=== PATIENT | female | born 1945 | race Caucasian/White ===

== ENCOUNTER 2023-05-04 18:19 | Inpatient (IN) | payer MEDICARE, OTHER ==
[~2023-05-04] VITALS: Ht 170.2 cm; Wt 78.9 kg
[~2023-05-04 18:19] MED LIST: APIX5TAB3 PO; CARV6.253 PO; FLEC50TA28 PO; METF-900 PO; MULT-384 PO; ROSU5TAB PO; VERA240T PO
[2023-05-04] MEDS ORDERED: morphine 4 MG/ML inj SYRINge IV ONE ×2 (18:25→19:40)
[2023-05-04] MEDS ORDERED: ondansetron/PF 4mg/2ml inj IV ONE (18:25)
[2023-05-04 18:55] LABS: HEMOGLOBIN 12.4 g/dl (12.0-16.0); PLATELET COUNT 177 X10'3 (140-440)
[2023-05-04 18:57] LABS: BASOPHILS % (AUTO) 0.4 % (0-1); EOSINOPHILS # (AUTO) 0.1 X10'3 (0-0.9); EOSINOPHILS % (AUTO) 0.9 % (0-6); HEMATOCRIT 36.1 % (35.0-45.0); LYMPHOCYTES # (AUTO) 1.8 X10'3 (1.1-4.8); LYMPHOCYTES % (AUTO) 17.6 % (21-51); MEAN CORPUSCULAR HEMOGLOBIN 33.5 PG (27.0-31.0); MEAN CORPUSCULAR HGB CONC 34.2 g/dL (33.0-36.5); MEAN CORPUSCULAR VOLUME 97.8 FL (78-98); MEAN PLATELET VOLUME 9.2 FL (7.4-10.4); MONOCYTES # (AUTO) 0.6 X10'3 (0-0.9); MONOCYTES % (AUTO) 5.4 % (2-12); NEUTROPHILS # (AUTO) 7.7 X10'3 (1.8-7.7); NEUTROPHILS % (AUTO) 75.7 % (42-75); RED CELL DISTRIBUTION WIDTH 12.6 % (11.5-14.5); WHITE BLOOD COUNT 10.2 X10'3 (4.5-11.0)
[2023-05-04 19:05] LABS: ALANINE AMINOTRANSFERASE 17 U/L (12-78); ALBUMIN 3.8 G/DL (3.4-5.0); ALBUMIN/GLOBULIN RATIO 1.4 (1.1-1.5); ALKALINE PHOSPHATASE 66 IU/L (46-116); ANION GAP 8 (8-16); ASPARTATE AMINO TRANSFERASE 15 U/L (10-37); BILIRUBIN,TOTAL 0.4 MG/DL (0.1-1.0); BLOOD UREA NITROGEN 12 MG/DL (7-18); BUN/CREATININE RATIO 16.9 (10.0-20.0); CHLORIDE 100 MMOL/L (99-107); CREATININE 0.71 MG/DL (0.40-0.90); GLUCOSE 154 MG/DL (70-104); POTASSIUM 3.8 MMOL/L (3.5-5.1); SODIUM 134 MMOL/L (135-145); TOTAL PROTEIN 6.5 G/DL (6.4-8.2); eCRCL 64 ML/MIN; eGFR 80 ML/MIN
[2023-05-04 19:12] LABS: PROTHROMBIN TIME 10.4 SECONDS (9.0-12.0)
[2023-05-04] MEDS ORDERED: PRIM50TA27 PO (19:23)
[2023-05-04 19:34] LABS: BILIRUBIN,URINE NEGATIVE (Neg); COLOR,URINE YELLOW (Yellow); GLUCOSE, URINE NEGATIVE (Neg); KETONES,URINE NEGATIVE (Neg); LEUKOCYTE ESTERASE ,URINE NEGATIVE (Neg); NITRITES, URINE POSITIVE (Neg); OCCULT BLOOD,URINE NEGATIVE (Neg); PROTEIN,URINE NEGATIVE (Neg); UROBILINOGEN,URINE 0.2 E.U/dL (0.2-1.0)
[2023-05-04] MEDS ORDERED: LidoCAINE 2% Topical Jelly 11mL syringe TOP ONE (19:40)
[2023-05-04 19:45] LABS: UA COLLECTION TYPE FOLEY CATH
[2023-05-04 19:51] LABS: BACTERIA,URINE 4+ /HPF (Neg); RBC,URINE 0-2 /HPF (0-2)
[2023-05-04 19:52] LABS: CLARITY,URINE SLIGHTLY CLOUDY (Clear); SQUAMOUS EPITHELIAL CELL,UR FEW /LPF (FEW)
[2023-05-04] MEDS ORDERED: potassium Cl 20 mEq SR tablet PO PRN ×2 (19:55)
[2023-05-04] MEDS ORDERED: magnesium Cl slow-release 64mg tablet PO PRN (19:55)
[2023-05-04] MEDS ORDERED: potassium Cl 40MEQ/1/2NS 520ml 520 ML IV PRN (19:55)
[2023-05-04] MEDS ORDERED: mag hydrox/Alum hydrox/simeth 30ml oral suspension PO PRN (19:55)
[2023-05-04] MEDS ORDERED: magnesium 2GM in 50ml NS 50 ML IV PRN (19:55)
[2023-05-04] MEDS ORDERED: ondansetron/PF 4mg/2ml inj IV PRN (19:55)
[2023-05-04] MEDS ORDERED: magnesium 4gm in 100ml NS 100 ML IV PRN (19:55)
[2023-05-04] MEDS ORDERED: dextrose 50%-water 50ml dispensing syringe IV PRN ×2 (20:00)
[2023-05-04] MEDS ORDERED: glucagon, human recombinant 1mg kit SUBCUT PRN (20:00)
[2023-05-04] MEDS ORDERED: DEXTROSE 15 GM of carb/4 tabs (each vial/BOTTLE has 4 tablets) PO PRN ×2 (20:00)
[2023-05-04] MEDS ORDERED: MESSAGE TO PHARMACY PO ONE (20:00)
[2023-05-04] MEDS: K and/or MAG REPLACEMENT MC SCH (20:00)
[2023-05-04] MEDS: docusate sod 100mg capsule PO SCH (20:15)
[2023-05-04] MEDS: flecainide 50mg tablet PO SCH (20:15)
[2023-05-04] MEDS: normal saline 1000ml 1,000 ML IV SCH (20:16)
[2023-05-04] MEDS: carvedilol 6.25mg tablet PO SCH (20:16)
--- NOTE | 2023-05-04 20:28 | NUR ---
DINNER PROVIDED FOR PATIENT. DENIES FURTHER NEEDS AT THIS TIME. AT BEDSIDE. PATIENT VERBALIZES UNDERSTANDING OF NPO AT MIDNIGHT. CALL LIGHT WITHIN REACH.
[2023-05-04] MEDS: HYDROcodone/acetaminophen 10/325mg tab PO PRN (21:46)
--- NOTE | 2023-05-04 22:34 | NUR ---
PATIENT RESTING IN BED WITH EYES CLOSED, RESPIRATIONS EVEN AND UNLABORED, NO ACUTE DISTRESS NOTED AT THIS TIME. CALL LIGHT WITHIN REACH.
[2023-05-04] MEDS: morphine 2 MG/ML inj. syringe IV PRN (23:12)
--- NOTE | 2023-05-05 01:39 | NUR ---
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 PROVIDED PER ORDER. DENIES FURTHER NEEDS AT THIS TIME. RESPIRATIONS EVEN AND UNLABORED. NO ACUTE DISTRESS NOTED, CALL LIGHT WITHIN REACH.
[2023-05-05] MEDS: morphine 2 MG/ML inj. syringe IV PRN ×5 (01:42→15:20)
--- NOTE | 2023-05-05 02:43 | NUR ---
0300 LABS DRAWN AND SENT TO LAB. PATIENT DENIES NEEDS AT THIS TIME, CALL LIGHT WITHIN REACH. RESPIRATIONS EVEN AND UNLABORED.
[2023-05-05 02:56] LABS: BASOPHILS % (AUTO) 0.4 % (0-1); EOSINOPHILS % (AUTO) 0.6 % (0-6); HEMATOCRIT 33.7 % (35.0-45.0); HEMOGLOBIN 11.7 g/dl (12.0-16.0); LYMPHOCYTES # (AUTO) 2.3 X10'3 (1.1-4.8); LYMPHOCYTES % (AUTO) 30.7 % (21-51); MEAN CORPUSCULAR HEMOGLOBIN 33.7 PG (27.0-31.0); MEAN CORPUSCULAR HGB CONC 34.6 g/dL (33.0-36.5); MEAN CORPUSCULAR VOLUME 97.3 FL (78-98); MEAN PLATELET VOLUME 8.7 FL (7.4-10.4); MONOCYTES # (AUTO) 0.7 X10'3 (0-0.9); MONOCYTES % (AUTO) 9.1 % (2-12); NEUTROPHILS # (AUTO) 4.4 X10'3 (1.8-7.7); NEUTROPHILS % (AUTO) 59.2 % (42-75); PLATELET COUNT 158 X10'3 (140-440); RED BLOOD COUNT 3.47 X10'6 (4.20-5.60); RED CELL DISTRIBUTION WIDTH 12.5 % (11.5-14.5); WHITE BLOOD COUNT 7.5 X10'3 (4.5-11.0)
[2023-05-05 03:04] LABS: ALANINE AMINOTRANSFERASE 16 U/L (12-78); ALBUMIN 3.4 G/DL (3.4-5.0); ALBUMIN/GLOBULIN RATIO 1.3 (1.1-1.5); ALKALINE PHOSPHATASE 61 IU/L (46-116); ANION GAP 6 (8-16); ASPARTATE AMINO TRANSFERASE 17 U/L (10-37); BILIRUBIN,TOTAL 0.6 MG/DL (0.1-1.0); BLOOD UREA NITROGEN 10 MG/DL (7-18); BUN/CREATININE RATIO 14.1 (10.0-20.0); CALCIUM 8.7 MG/DL (8.5-10.1); CHLORIDE 102 MMOL/L (99-107); CREATININE 0.71 MG/DL (0.40-0.90); GLUCOSE 147 MG/DL (70-104); MAGNESIUM 1.8 MG/DL (1.5-2.4); POTASSIUM 4.4 MMOL/L (3.5-5.1); SODIUM 135 MMOL/L (135-145); TOTAL CARBON DIOXIDE 27.5 MMOL/L (24-32); TOTAL PROTEIN 6.1 G/DL (6.4-8.2); eCRCL 64 ML/MIN; eGFR 80 ML/MIN
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
--- NOTE | 2023-05-05 05:40 | NUR ---
PATIENT RESTING WITH EYES CLOSED, NO FACIAL GRIMACING NOTED. RESPIRATIONS EVEN AND UNLABORED. CALL LIGHT WITHIN REACH.
--- NOTE | 2023-05-05 07:27 | NUR ---
recd report from [facility]
[2023-05-05 07:50] VITALS: BP 134/66; PULSE 69; RESP 24; TEMP 98; O2SAT 99
[2023-05-05] MEDS: ROSUVASTATIN CALCIUM 5 MG TABLET PO SCH (08:00)
[2023-05-05] MEDS: K and/or MAG REPLACEMENT MC SCH ×2 (08:00→20:00)
[2023-05-05] MEDS: flecainide 50mg tablet PO SCH ×2 (08:00→21:18)
[2023-05-05] MEDS: carvedilol 6.25mg tablet PO SCH ×2 (08:00→21:20)
[2023-05-05] MEDS: docusate sod 100mg capsule PO SCH ×2 (08:00→21:18)
[2023-05-05] MEDS: normal saline 1000ml 1,000 ML IV SCH ×2 (08:25→22:58)
[2023-05-05 11:43] VITALS: BP 144/64; PULSE 80; RESP 20; TEMP 99.8; O2SAT 98
[2023-05-05] MEDS ORDERED: PRIM50TA5 PO (13:10)
[2023-05-05] MEDS ORDERED: ringers solution, lacted 1,000 ML IV ONE (17:15)
[2023-05-05 18:00] VITALS: BP 145/59; PULSE 71; RESP 15; TEMP 98.2; O2SAT 94
[2023-05-05] MEDS: morphine/NS 1 mg/ml 50ml CADD 50 ML IV SCH ×3 (18:18→23:00)
[2023-05-05] MEDS: Melatonin 3mg tablet PO SCH (21:18)
[2023-05-05 22:00] VITALS: BP 136/68; PULSE 79; RESP 15; TEMP 96.8; O2SAT 95
--- NOTE | 2023-05-05 23:10 | NUR ---
Patient in room ORTHO 4020. I have received report from TOBY Aguirre and had the opportunity to ask questions and assume patient care.
--- NOTE | 2023-05-05 23:49 | NUR ---
Patient in room ORTHO 4020. I have received report from Flores and had the opportunity to ask questions and assume patient care.
--- NOTE | 2023-05-05 23:53 | NUR ---
Problems reprioritized. Patient report given, questions answered & plan of care reviewed with Stacey .
[2023-05-06] VITALS (24 sets, daily range): BP systolic 96–140; BP diastolic 47–68; PULSE 60–90; RESP 10–20; TEMP 96.2–99; O2SAT 93–100
[2023-05-06] MEDS: morphine/NS 1 mg/ml 50ml CADD 50 ML IV SCH ×5 (01:00→09:00)
[2023-05-06 05:59] LABS: BASOPHILS % (AUTO) 0.4 % (0-1); EOSINOPHILS % (AUTO) 0.7 % (0-6); HEMATOCRIT 34.6 % (35.0-45.0); HEMOGLOBIN 11.8 g/dl (12.0-16.0); LYMPHOCYTES # (AUTO) 1.9 X10'3 (1.1-4.8); LYMPHOCYTES % (AUTO) 26.4 % (21-51); MEAN CORPUSCULAR VOLUME 97.3 FL (78-98); MONOCYTES # (AUTO) 0.8 X10'3 (0-0.9); NEUTROPHILS # (AUTO) 4.5 X10'3 (1.8-7.7); NEUTROPHILS % (AUTO) 61.5 % (42-75); PLATELET COUNT 148 X10'3 (140-440); RED BLOOD COUNT 3.56 X10'6 (4.20-5.60); RED CELL DISTRIBUTION WIDTH 12.5 % (11.5-14.5); WHITE BLOOD COUNT 7.3 X10'3 (4.5-11.0)
[2023-05-06] MEDS ORDERED: famotidine 20mg tablet PO ONE (06:00)
[2023-05-06 06:16] LABS: ALANINE AMINOTRANSFERASE 10 U/L (12-78); ALBUMIN/GLOBULIN RATIO 1.1 (1.1-1.5); ALKALINE PHOSPHATASE 54 IU/L (46-116); ANION GAP 6 (8-16); ASPARTATE AMINO TRANSFERASE 14 U/L (10-37); BILIRUBIN,TOTAL 0.8 MG/DL (0.1-1.0); BLOOD UREA NITROGEN 7 MG/DL (7-18); BUN/CREATININE RATIO 9.9 (10.0-20.0); CALCIUM 8.4 MG/DL (8.5-10.1); CHLORIDE 99 MMOL/L (99-107); CREATININE 0.71 MG/DL (0.40-0.90); GLUCOSE 154 MG/DL (70-104); MAGNESIUM 1.7 MG/DL (1.5-2.4); POTASSIUM 3.7 MMOL/L (3.5-5.1); SODIUM 132 MMOL/L (135-145); TOTAL CARBON DIOXIDE 27.2 MMOL/L (24-32); TOTAL PROTEIN 5.7 G/DL (6.4-8.2); eCRCL 64 ML/MIN; eGFR 80 ML/MIN
[2023-05-06 06:28] LABS: HEMOGLOBIN A1C 6.7 % (4.5-6.2)
[2023-05-06] MEDS ORDERED: vancomycin 1,000mg inj ONE (06:41)
--- NOTE | 2023-05-06 06:48 | NUR ---
Patient in room ORTHO 4020. I have received report from Stacey and had the opportunity to ask questions and assume patient care.
--- NOTE | 2023-05-06 06:55 | NUR ---
Problems reprioritized. Patient report given, questions answered & plan of care reviewed with HONEY Newman.
[2023-05-06] MEDS ORDERED: midazolam 1 mg/ML 2ml injection ONE (07:18)
[2023-05-06] MEDS ORDERED: labetalol 20mg/4ml (5mg/ml) syringe IV PRN (07:30)
[2023-05-06] MEDS ORDERED: ondansetron/PF 4mg/2ml inj IV PRN (07:30)
[2023-05-06] MEDS ORDERED: morphine 4 MG/ML inj SYRINge IV PRN (07:30)
[2023-05-06] MEDS ORDERED: hydrALAZINE 20mg/ml inj. IV PRN (07:30)
[2023-05-06] MEDS: K and/or MAG REPLACEMENT MC SCH ×2 (07:30→20:00)
[2023-05-06] MEDS ORDERED: morphine 2 MG/ML inj. syringe IV PRN (07:30)
[2023-05-06] MEDS ORDERED: HYDROmorphone/PF 0.2 MG/ML SYRINGE IV PRN ×2 (07:30)
[2023-05-06] MEDS ORDERED: acetaminophen 1,000mg/100ml IV 100 ML IV PRN (07:30)
[2023-05-06] MEDS: carvedilol 6.25mg tablet PO SCH ×2 (07:30→20:20)
[2023-05-06] MEDS ORDERED: ringers solution, lacted 1,000 ML IV SCH (07:30)
[2023-05-06] MEDS: ROSUVASTATIN CALCIUM 5 MG TABLET PO SCH (07:30)
[2023-05-06] MEDS ORDERED: meperidine/PF 25mg/ml syringe IV PRN (07:30)
[2023-05-06] MEDS: flecainide 50mg tablet PO SCH ×2 (07:30→20:06)
[2023-05-06] MEDS: docusate sod 100mg capsule PO SCH ×2 (07:30→20:06)
[2023-05-06] MEDS ORDERED: proCHLORperazine 10 MG/2 ml inj IV PRN (07:30)
[2023-05-06] MEDS ORDERED: ketorolac tromethamine 15mg/ml inj. IV ONE (07:30)
[2023-05-06] MEDS ORDERED: cloNIDine hcl/PF 100mcg/ml inj ONE (07:31)
[2023-05-06] MEDS ORDERED: sevoflurane 250ml liquid IH ONE (07:37)
[2023-05-06] MEDS ORDERED: fentaNYL /PF 50mcg/ml 5ml ampule ONE (07:47)
[2023-05-06] MEDS ORDERED: 0.9 % SODIUM CHLORIDE 10 ML VIAL ONE ×3 (08:20)
[2023-05-06] MEDS ORDERED: dexamethasone sod phosphate 4mg/ml inj. ONE ×2 (08:20→08:36)
[2023-05-06] MEDS ORDERED: ceFAZolin 1000mg inj ONE ×2 (08:20)
[2023-05-06] MEDS ORDERED: LIDOcaine 2% (20mg/ml) 5ml vial ONE (08:20)
[2023-05-06] MEDS ORDERED: ROPIVAcaine 0.5% (5mg/ml) 30ml vial ONE (08:20)
[2023-05-06] MEDS ORDERED: propofol inj 20 ML IV ONE (08:20)
[2023-05-06] MEDS ORDERED: ePHEDrine 50MG/ML INJ. ONE (08:21)
[2023-05-06] MEDS ORDERED: ondansetron/PF 4mg/2ml inj ONE (08:36)
[2023-05-06] MEDS ORDERED: vancomycin 1,000mg inj IVT ONE (09:25)
[2023-05-06] MEDS ORDERED: BUPIVAcaine/PF 2.5 mg/ml (0.25%) 30ml vial IJ ONE (09:25)
--- NOTE | 2023-05-06 09:36 | NUR ---
Received from OR via HOSPITAL BED TO RR 5, accompanied by Anesthesiologist DARRIUS and report given by Anesthesiologist. PT PRESENT ON 6L VIA MASK, VSS. LEFT HIP WITH ISLAND DRESSING, CDI. LR RUNNING THRU PIV. NO DENIES PAIN, N/V AT THIS TIME. NO S/S OF DISTRESS. Addendum: 05/06/23 at 0938 by Mojgan Nguyen RN PALPABLE BILATERAL PEDAL PULSES +2
--- NOTE | 2023-05-06 10:15 | NUR ---
ORDER RECEIVED FROM DR STARK TO CHANGE CURRENT MORPHINE CADD FROM CONTINUOS TO DEMAND DOSE ONLY, STANDARD SETTINGS.
--- NOTE | 2023-05-06 10:21 | NUR ---
received report from Mojgan in RR
--- NOTE | 2023-05-06 10:26 | NUR ---
PATIENT STABLE FOR TRANSFER PER MD ORDERS. REPORT CALLED TO KIMBERLY, PRIMARY NURSE. ALL QUESTIONS, COMMENTS, AND CONCERNS WERE ANSWERED AT THIS TIME. PT STATES PAIN IS TOLERABLE AND HAS MORPHINE CADD TRIGGER IN HAND IF NEEDED. ISLAND DRESSING TO LEFT HIP REMAINS CDI. POWDER PACK AND ABDUCTOR WEDGE IN PLACE. PATIENT HAS CALL LIGHT, BLL, 2 RAILS UP. PRIMARY NURSE AND TECH IN ROOM DURING TRANSFER. DENTURES ARE IN AND RING WAS GIVEN TO , NIKA.
[2023-05-06] MEDS: morphine/NS PCA 1mg/ml 50ml 50 ML IV SCH ×7 (10:30→21:40)
[2023-05-06] MEDS ORDERED: PCA WASTE DOCUMENTATION 1 MG ML MC SCH ×2 (11:00→15:50)
--- NOTE | 2023-05-06 11:18 | NUR ---
Morphine CADD settings changed while patient was in OR/Recovery. VTBI on the pump indicates 11.1 mLs remaining. Total mg infused displayed is 1.0 mg. New setting is 1mg demand only, lockout interval 10 minutes. Witnessed with Rosa Acuna
[2023-05-06] MEDS: normal saline 1000ml 1,000 ML IV SCH (12:00)
--- NOTE | 2023-05-06 12:42 | NUR ---
pt delivered regular tray for lunch, has tolerated ice chips, water and sprite without c/o nausea, states being hungry and wanting to eat-good bowel sounds x 4 quads ascultated
[2023-05-06] MEDS: insulin Lispro (HumaLOG) vial - multi-dose SQ SCH ×2 (13:52→19:42)
[2023-05-06] MEDS: ceFAZolin/D5W- 1GM premix 50 ML IV SCH (15:50)
--- NOTE | 2023-05-06 17:17 | NUR ---
Orientee documentation:Gunjan RN I have reviewed and agree with all interventions, medication administration per hospital policy, and assessments performed and documented by orientee. Reviewed assessments and provided appropriate feedback. HONEY hunter made updates to the documentation where needed.
--- NOTE | 2023-05-06 18:30 | NUR ---
Patient in room ORTHO 4020. I have received report from HONEY HARRIS and had the opportunity to ask questions and assume patient care.
[2023-05-06] MEDS: METFORMIN 500 MG PO SCH (20:00)
[2023-05-06] MEDS: apixaban 5mg tablet PO SCH (20:06)
[2023-05-06] MEDS ORDERED: Melatonin 3mg tablet PO SCH (21:00)
[2023-05-06] MEDS: Melatonin 3mg tablet PO SCH (21:34)
[2023-05-06] MEDS ORDERED: temazepam 15mg capsule PO ONE (22:00)
[2023-05-07] VITALS (13 sets, daily range): BP systolic 91–124; BP diastolic 42–61; PULSE 64–90; RESP 14–17; TEMP 96.8–99.3; O2SAT 92–98
[2023-05-07] MEDS: ceFAZolin/D5W- 1GM premix 50 ML IV SCH ×3 (00:30→16:07)
[2023-05-07] MEDS: normal saline 1000ml 1,000 ML IV SCH ×3 (00:33→23:39)
[2023-05-07] MEDS: morphine/NS PCA 1mg/ml 50ml 50 ML IV SCH ×12 (01:00→23:00)
--- NOTE | 2023-05-07 06:00 | NUR ---
Recd report from Latoya Padgett RN, care assumed
[2023-05-07 06:34] LABS: ALANINE AMINOTRANSFERASE 12 U/L (12-78); ALBUMIN 2.3 G/DL (3.4-5.0); ALKALINE PHOSPHATASE 40 IU/L (46-116); ANION GAP 4 (8-16); ASPARTATE AMINO TRANSFERASE 10 U/L (10-37); BILIRUBIN,TOTAL 0.5 MG/DL (0.1-1.0); BLOOD UREA NITROGEN 11 MG/DL (7-18); BUN/CREATININE RATIO 15.9 (10.0-20.0); CALCIUM 8.2 MG/DL (8.5-10.1); CHLORIDE 100 MMOL/L (99-107); CREATININE 0.69 MG/DL (0.40-0.90); GLUCOSE 171 MG/DL (70-104); MAGNESIUM 1.6 MG/DL (1.5-2.4); SODIUM 131 MMOL/L (135-145); TOTAL CARBON DIOXIDE 26.8 MMOL/L (24-32); TOTAL PROTEIN 4.7 G/DL (6.4-8.2); eCRCL 65 ML/MIN; eGFR 82 ML/MIN
[2023-05-07 06:40] LABS: BASOPHILS % (AUTO) 0.2 % (0-1); EOSINOPHILS % (AUTO) 0.1 % (0-6); HEMATOCRIT 23.2 % (35.0-45.0); HEMOGLOBIN 8.2 g/dl (12.0-16.0); LYMPHOCYTES # (AUTO) 1.6 X10'3 (1.1-4.8); MEAN CORPUSCULAR HEMOGLOBIN 34.1 PG (27.0-31.0); MEAN CORPUSCULAR HGB CONC 35.3 g/dL (33.0-36.5); MEAN CORPUSCULAR VOLUME 96.7 FL (78-98); MEAN PLATELET VOLUME 8.5 FL (7.4-10.4); MONOCYTES # (AUTO) 0.7 X10'3 (0-0.9); MONOCYTES % (AUTO) 10.1 % (2-12); NEUTROPHILS # (AUTO) 4.7 X10'3 (1.8-7.7); NEUTROPHILS % (AUTO) 66.6 % (42-75); PLATELET COUNT 119 X10'3 (140-440); RED CELL DISTRIBUTION WIDTH 12.1 % (11.5-14.5); WHITE BLOOD COUNT 7.1 X10'3 (4.5-11.0)
--- NOTE | 2023-05-07 06:41 | NUR ---
Patient in room ORTHO 4020. I have received report from Rosa, HONEY orientee, and had the opportunity to ask questions.
[2023-05-07] MEDS: METFORMIN 500 MG PO SCH ×2 (08:00→20:00)
[2023-05-07] MEDS ORDERED: albuterol 2.5 MG/3 ML nebule NEB PRN (08:05)
[2023-05-07] MEDS ORDERED: ipratropium/albuterol 3ml nebule NEB PRN (08:05)
[2023-05-07] MEDS ORDERED: tranexamic acid 100mg/ml inj. ONE (08:11)
[2023-05-07] MEDS: ROSUVASTATIN CALCIUM 5 MG TABLET PO SCH (08:13)
[2023-05-07] MEDS: carvedilol 6.25mg tablet PO SCH ×2 (08:14→20:57)
[2023-05-07] MEDS: multivitamins, therapeutics tablet PO SCH (08:14)
[2023-05-07] MEDS: flecainide 50mg tablet PO SCH ×2 (08:14→20:58)
[2023-05-07] MEDS: apixaban 5mg tablet PO SCH ×2 (08:14→20:57)
[2023-05-07] MEDS: docusate sod 100mg capsule PO SCH ×2 (08:14→20:56)
[2023-05-07] MEDS: K and/or MAG REPLACEMENT MC SCH ×2 (08:22→18:44)
--- NOTE | 2023-05-07 08:45 | NUR ---
Re Татьяна Treviño room 4020B can we restart her metformin or keep her on insulin sliding scale? tx Rosa ext [phone] Recd call back to continue her on insulin protocal while in hospital, continue to hold metformin
[2023-05-07] MEDS: insulin Lispro (HumaLOG) vial - multi-dose SQ SCH ×2 (09:26→13:58)
[2023-05-07] MEDS ORDERED: ondansetron 4mg rapidly disintigrating tab PO PRN (13:33)
[2023-05-07 15:56] LABS: HEMATOCRIT 22.9 % (35.0-45.0); HEMOGLOBIN 7.8 g/dl (12.0-16.0); MEAN CORPUSCULAR HEMOGLOBIN 33.2 PG (27.0-31.0); MEAN CORPUSCULAR HGB CONC 34.1 g/dL (33.0-36.5); MEAN CORPUSCULAR VOLUME 97.4 FL (78-98); MEAN PLATELET VOLUME 8.4 FL (7.4-10.4); PLATELET COUNT 119 X10'3 (140-440); RED BLOOD COUNT 2.35 X10'6 (4.20-5.60); RED CELL DISTRIBUTION WIDTH 12.1 % (11.5-14.5); WHITE BLOOD COUNT 6.8 X10'3 (4.5-11.0)
[2023-05-07] MEDS: magnesium hydroxide 30ml (MOM) UD suspension PO PRN (16:13)
--- NOTE | 2023-05-07 17:18 | NUR ---
patient brought strawberry dryers ice cream by family around 3 pm, didn't advance pt on Insulin protocal-kept at level 4. Rosa MÉNDEZ Addendum: 05/07/23 at 1720 by Rosa Ring RN Amended: Links added.
--- NOTE | 2023-05-07 18:28 | NUR ---
report given to Dinora Lee RN Addendum: 05/07/23 at 1829 by Rosa Ring RN Amended: Links added.
[2023-05-07] MEDS ORDERED: levoFLOXACIN 500mg tablet PO ONE (19:45)
[2023-05-07] MEDS: Melatonin 3mg tablet PO SCH (20:57)
[2023-05-08] VITALS (11 sets, daily range): BP systolic 90–118; BP diastolic 38–81; PULSE 72–93; RESP 14–16; TEMP 98.1–98.9; O2SAT 94–98
[2023-05-08] MEDS: morphine/NS PCA 1mg/ml 50ml 50 ML IV SCH ×6 (01:00→11:00)
[2023-05-08 06:30] LABS: ALANINE AMINOTRANSFERASE 11 U/L (12-78); ALBUMIN 2.2 G/DL (3.4-5.0); ALBUMIN/GLOBULIN RATIO 0.9 (1.1-1.5); ALKALINE PHOSPHATASE 42 IU/L (46-116); ANION GAP 6 (8-16); ASPARTATE AMINO TRANSFERASE 15 U/L (10-37); BILIRUBIN,TOTAL 0.4 MG/DL (0.1-1.0); BLOOD UREA NITROGEN 14 MG/DL (7-18); BUN/CREATININE RATIO 19.4 (10.0-20.0); CALCIUM 7.7 MG/DL (8.5-10.1); CHLORIDE 102 MMOL/L (99-107); CREATININE 0.72 MG/DL (0.40-0.90); GLUCOSE 199 MG/DL (70-104); MAGNESIUM 1.7 MG/DL (1.5-2.4); POTASSIUM 4.1 MMOL/L (3.5-5.1); SODIUM 134 MMOL/L (135-145); TOTAL CARBON DIOXIDE 26.4 MMOL/L (24-32); TOTAL PROTEIN 4.6 G/DL (6.4-8.2); eCRCL 63 ML/MIN; eGFR 78 ML/MIN
[2023-05-08 06:35] LABS: BASOPHILS % (AUTO) 0.3 % (0-1); EOSINOPHILS # (AUTO) 0.1 X10'3 (0-0.9); EOSINOPHILS % (AUTO) 1.4 % (0-6); HEMOGLOBIN 7.2 g/dl (12.0-16.0); LYMPHOCYTES # (AUTO) 1.6 X10'3 (1.1-4.8); LYMPHOCYTES % (AUTO) 22.1 % (21-51); MEAN CORPUSCULAR HEMOGLOBIN 33.6 PG (27.0-31.0); MEAN CORPUSCULAR HGB CONC 34.3 g/dL (33.0-36.5); MEAN CORPUSCULAR VOLUME 97.9 FL (78-98); MEAN PLATELET VOLUME 8.9 FL (7.4-10.4); MONOCYTES # (AUTO) 0.8 X10'3 (0-0.9); MONOCYTES % (AUTO) 10.6 % (2-12); NEUTROPHILS # (AUTO) 4.7 X10'3 (1.8-7.7); NEUTROPHILS % (AUTO) 65.6 % (42-75); PLATELET COUNT 113 X10'3 (140-440); RED BLOOD COUNT 2.14 X10'6 (4.20-5.60); RED CELL DISTRIBUTION WIDTH 12.3 % (11.5-14.5); WHITE BLOOD COUNT 7.1 X10'3 (4.5-11.0)
--- NOTE | 2023-05-08 06:37 | NUR ---
Problems reprioritized. Patient report given, questions answered & plan of care reviewed with kevin Pereira.
--- NOTE | 2023-05-08 07:22 | NUR ---
PAGER ID: [phone] Dr. Stratton MESSAGE: [id number] Vladislav Treviño has an H/H 7.2/21.0. Kelli [phone]
[2023-05-08] MEDS: K and/or MAG REPLACEMENT MC SCH ×2 (08:00→20:00)
[2023-05-08] MEDS: flecainide 50mg tablet PO SCH ×2 (08:08→20:12)
[2023-05-08] MEDS: apixaban 5mg tablet PO SCH ×2 (08:08→20:12)
[2023-05-08] MEDS: carvedilol 6.25mg tablet PO SCH ×2 (08:08→20:12)
[2023-05-08] MEDS: ROSUVASTATIN CALCIUM 5 MG TABLET PO SCH (08:08)
[2023-05-08] MEDS: multivitamins, therapeutics tablet PO SCH (08:08)
[2023-05-08] MEDS: docusate sod 100mg capsule PO SCH ×2 (08:09→20:12)
[2023-05-08] MEDS: insulin Lispro (HumaLOG) vial - multi-dose SQ SCH ×3 (08:48→18:53)
[2023-05-08 09:58] LABS: BASOPHILS % (AUTO) 0.2 % (0-1); EOSINOPHILS # (AUTO) 0.1 X10'3 (0-0.9); EOSINOPHILS % (AUTO) 0.8 % (0-6); HEMOGLOBIN 7.3 g/dl (12.0-16.0); LYMPHOCYTES # (AUTO) 1.2 X10'3 (1.1-4.8); LYMPHOCYTES % (AUTO) 16.8 % (21-51); MEAN CORPUSCULAR HEMOGLOBIN 33.6 PG (27.0-31.0); MEAN CORPUSCULAR HGB CONC 34.2 g/dL (33.0-36.5); MEAN CORPUSCULAR VOLUME 98.1 FL (78-98); MEAN PLATELET VOLUME 8.4 FL (7.4-10.4); MONOCYTES # (AUTO) 0.6 X10'3 (0-0.9); MONOCYTES % (AUTO) 8.5 % (2-12); NEUTROPHILS # (AUTO) 5.1 X10'3 (1.8-7.7); NEUTROPHILS % (AUTO) 73.7 % (42-75); PLATELET COUNT 114 X10'3 (140-440); RED BLOOD COUNT 2.17 X10'6 (4.20-5.60); RED CELL DISTRIBUTION WIDTH 12.5 % (11.5-14.5); WHITE BLOOD COUNT 6.9 X10'3 (4.5-11.0)
[2023-05-08 10:04] LABS: HEMATOCRIT 21.2 % (35.0-45.0)
[2023-05-08] MEDS: levoFLOXACIN 500mg tablet PO SCH (11:13)
[2023-05-08] MEDS: metFORMIN 500mg tablet PO SCH ×2 (11:18→17:38)
[2023-05-08] MEDS: normal saline 1000ml 1,000 ML IV SCH (11:38)
--- NOTE | 2023-05-08 11:56 | NUR ---
PAGER ID: [phone] MESSAGE: Arvin Treviño Can we DC the CADD and put her on PO pain meds? Kelli [phone]
[2023-05-08] MEDS: HYDROcodone/acetaminophen 10/325mg tab PO PRN ×2 (14:44→20:12)
--- NOTE | 2023-05-08 17:39 | NUR ---
Student documentation: I have reviewed all interventions, assessments performed and documented by Marcellus HOFF of [facility]. Student Medication Administration: For all medication-passes in the time frame of 7047-8877, all medication were reviewed, dispensed, administered and documented per hospital policy by Marcellus HOFF of [facility].
[2023-05-08] MEDS: Melatonin 3mg tablet PO SCH (20:12)
[2023-05-08] MEDS: magnesium hydroxide 30ml (MOM) UD suspension PO PRN (20:16)
[2023-05-09] VITALS (15 sets, daily range): BP systolic 105–155; BP diastolic 47–83; PULSE 68–146; RESP 14–18; TEMP 97–99.6; O2SAT 95–98
[2023-05-09] MEDS: normal saline 1000ml 1,000 ML IV SCH ×3 (00:01→21:11)
[2023-05-09] MEDS ORDERED: diphenhydrAMINE 25mg capsule PO PRN (00:05)
[2023-05-09] MEDS: HYDROcodone/acetaminophen 10/325mg tab PO PRN ×3 (04:54→12:27)
--- NOTE | 2023-05-09 06:44 | NUR ---
Problems reprioritized. Patient report given, questions answered & plan of care reviewed with HONEY HUTCHISON.
[2023-05-09 06:45] LABS: BASOPHILS % (AUTO) 0.3 % (0-1); EOSINOPHILS # (AUTO) 0.1 X10'3 (0-0.9); EOSINOPHILS % (AUTO) 2.2 % (0-6); LYMPHOCYTES # (AUTO) 1.9 X10'3 (1.1-4.8); LYMPHOCYTES % (AUTO) 32.5 % (21-51); MEAN CORPUSCULAR HEMOGLOBIN 33.5 PG (27.0-31.0); MEAN CORPUSCULAR HGB CONC 33.9 g/dL (33.0-36.5); MEAN CORPUSCULAR VOLUME 98.7 FL (78-98); MEAN PLATELET VOLUME 8.6 FL (7.4-10.4); MONOCYTES # (AUTO) 0.6 X10'3 (0-0.9); MONOCYTES % (AUTO) 10.1 % (2-12); NEUTROPHILS # (AUTO) 3.2 X10'3 (1.8-7.7); NEUTROPHILS % (AUTO) 54.9 % (42-75); PLATELET COUNT 121 X10'3 (140-440); RED BLOOD COUNT 2.07 X10'6 (4.20-5.60); RED CELL DISTRIBUTION WIDTH 12.4 % (11.5-14.5); WHITE BLOOD COUNT 5.9 X10'3 (4.5-11.0)
--- NOTE | 2023-05-09 06:48 | NUR ---
Patient in room ORTHO 4020. I have received report from Dinora and had the opportunity to ask questions and assume patient care.
[2023-05-09 07:00] LABS: HEMOGLOBIN 6.9 g/dl (12.0-16.0)
[2023-05-09 07:01] LABS: HEMATOCRIT 20.4 % (35.0-45.0)
[2023-05-09 07:06] LABS: ALANINE AMINOTRANSFERASE 13 U/L (12-78); ALBUMIN 2.1 G/DL (3.4-5.0); ALBUMIN/GLOBULIN RATIO 0.9 (1.1-1.5); ALKALINE PHOSPHATASE 50 IU/L (46-116); ANION GAP 3 (8-16); ASPARTATE AMINO TRANSFERASE 22 U/L (10-37); BILIRUBIN,TOTAL 0.4 MG/DL (0.1-1.0); BLOOD UREA NITROGEN 12 MG/DL (7-18); BUN/CREATININE RATIO 17.6 (10.0-20.0); CALCIUM 7.8 MG/DL (8.5-10.1); CHLORIDE 103 MMOL/L (99-107); CREATININE 0.68 MG/DL (0.40-0.90); GLUCOSE 165 MG/DL (70-104); POTASSIUM 4.1 MMOL/L (3.5-5.1); SODIUM 133 MMOL/L (135-145); TOTAL CARBON DIOXIDE 26.7 MMOL/L (24-32); TOTAL PROTEIN 4.4 G/DL (6.4-8.2); eCRCL 66 ML/MIN; eGFR 84 ML/MIN
[2023-05-09] MEDS: K and/or MAG REPLACEMENT MC SCH ×2 (08:00→20:00)
[2023-05-09] MEDS: carvedilol 6.25mg tablet PO SCH ×2 (08:00→20:56)
[2023-05-09] MEDS: docusate sod 100mg capsule PO SCH ×2 (09:21→20:56)
[2023-05-09] MEDS: metFORMIN 500mg tablet PO SCH ×2 (09:21→17:49)
[2023-05-09] MEDS: apixaban 5mg tablet PO SCH ×2 (09:22→20:56)
[2023-05-09] MEDS: multivitamins, therapeutics tablet PO SCH (09:22)
[2023-05-09] MEDS: flecainide 50mg tablet PO SCH ×2 (09:22→20:56)
[2023-05-09] MEDS: ROSUVASTATIN CALCIUM 5 MG TABLET PO SCH (09:22)
[2023-05-09] MEDS: levoFLOXACIN 500mg tablet PO SCH (11:47)
--- NOTE | 2023-05-09 13:36 | NUR ---
Initial: Pt DX left hip fracture s/p hemiarthroplasty 05/06, hyponatremia, and acute UTI per EMR. Pt continues on a heart healthy carbohydrate controlled diet with average PO intake of 40% x 10 meals which met ~47% of estimated kcal needs and ~40% of estimated protein needs. Due to fluctuating intake recommend Ensure Enlive TIDWM to help meet estimated needs; MD notified. LBM on 05/04 receiving routine colace and PRN MoM on 05/08 per EMR. Recommend prunes and prune juice to assist with bowel movement;communicated with dietary. Will continue to monitor and make recommendations as appropriate. Recommendations: 1.recommend liberalizing diet to regular. Heart healthy diet not warranted given episodes of low BP and hyponatremia. Carbohydrate controlled diet not warranted given A1c of 6.7% appropriate given age. 2.Ensure Enlive TIDWM; pending physician approval in EMR 3.routine bowel care 4.weekly scaled wts Addendum: 05/09/23 at [address] Amended: Links added.
--- NOTE | 2023-05-09 16:29 | NUR ---
Re: 9083B, patient requesting med to assist with having a BM. Suppository? Please advise Paty [phone]
[2023-05-09] MEDS ORDERED: sennosides 8.6mg tablet PO PRN (16:35)
[2023-05-09] MEDS: lactose-reduced food (Ensure Enlive) - 237ml bottle PO SCH (18:00)
--- NOTE | 2023-05-09 18:01 | NUR ---
Re: 4020B, now pt & family want an enema, please advise Paty [phone] Addendum: 05/09/23 at 1804 by Paty Horne RN Received call from hospitalist, plan of care to allow the senna to work first then revisit. Spoke with family.
--- NOTE | 2023-05-09 18:35 | NUR ---
Problems reprioritized. Patient report given, questions answered & plan of care reviewed with
--- NOTE | 2023-05-09 19:00 | NUR ---
PT REFUSED DINNER AND INSULIN.
[2023-05-09] MEDS ORDERED: bisacodyl 10mg suppository rectal RC ONE (20:20)
[2023-05-09 20:21] LABS: HEMATOCRIT 32.1 % (35.0-45.0); HEMOGLOBIN 10.9 g/dl (12.0-16.0); MEAN CORPUSCULAR HGB CONC 34.1 g/dL (33.0-36.5); MEAN CORPUSCULAR VOLUME 96.8 FL (78-98); PLATELET COUNT 156 X10'3 (140-440); RED BLOOD COUNT 3.32 X10'6 (4.20-5.60); RED CELL DISTRIBUTION WIDTH 12.9 % (11.5-14.5); WHITE BLOOD COUNT 10.9 X10'3 (4.5-11.0)
[2023-05-09] MEDS: Melatonin 3mg tablet PO SCH (20:56)
[2023-05-09 21:19] LABS: FIBRINOGEN 533 MG/DL (177-424); PROTHROMBIN TIME 10.7 SECONDS (9.0-12.0)
[2023-05-09 22:07] LABS: OCCULT BLOOD STOOL NEGATIVE (Neg)
[2023-05-09] MEDS: acetaminophen 325mg tablet PO PRN (22:17)
[2023-05-10] VITALS (8 sets, daily range): BP systolic 111–147; BP diastolic 51–81; PULSE 66–91; RESP 16–18; TEMP 96.9–98.1; O2SAT 96–98
[2023-05-10] MEDS: acetaminophen 325mg tablet PO PRN ×2 (04:27→13:25)
--- NOTE | 2023-05-10 06:26 | NUR ---
Following this patient with TOBY Rodríguez. No report received. This junior copywriter had this patient the entire shift 05/09/23 dayshift and is familiar with this patient.
--- NOTE | 2023-05-10 06:45 | NUR ---
Patient in room ORTHO 4020. I have received report from Dinora MÉNDEZ and had the opportunity to ask questions and assume patient care.
--- NOTE | 2023-05-10 06:51 | NUR ---
Problems reprioritized. Patient report given, questions answered & plan of care reviewed with TOBY CARMONA.
[2023-05-10] MEDS: K and/or MAG REPLACEMENT MC SCH ×2 (08:00→20:00)
[2023-05-10] MEDS: docusate sod 100mg capsule PO SCH ×2 (09:28→20:17)
[2023-05-10] MEDS: metFORMIN 500mg tablet PO SCH ×2 (09:28→18:26)
[2023-05-10] MEDS: apixaban 5mg tablet PO SCH ×2 (09:30→20:19)
[2023-05-10] MEDS: carvedilol 6.25mg tablet PO SCH ×2 (09:30→20:17)
[2023-05-10] MEDS: flecainide 50mg tablet PO SCH ×2 (09:31→20:19)
[2023-05-10] MEDS: multivitamins, therapeutics tablet PO SCH (09:31)
[2023-05-10] MEDS: ROSUVASTATIN CALCIUM 5 MG TABLET PO SCH ×2 (10:57→10:58)
[2023-05-10] MEDS: levoFLOXACIN 500mg tablet PO SCH (10:59)
--- NOTE | 2023-05-10 13:12 | NUR ---
Patient family brings food for patient. Patient doesn't use insulin at home, she only takes metformin. I verbally spoke with Dr. Stratton and he is okay with stopping the DM protocol. There is no way to calculate the patient carb intake or when she is eating. Giving insulin can be dangerous and can tank patient blood sugars. Medications stop in emar
--- NOTE | 2023-05-10 18:09 | NUR ---
Following this patient with primary nurse TOBY Chong. This ticket writer performed their own assessment. All other aspects of care were performed by the patient's primary nurse.
--- NOTE | 2023-05-10 18:17 | NUR ---
Problems reprioritized. Patient report given, questions answered & plan of care reviewed with Yazmin MÉNDEZ.
[2023-05-10] MEDS: Melatonin 3mg tablet PO SCH (20:17)
[2023-05-10] MEDS: HYDROcodone/acetaminophen 5mg/325mg tablet PO PRN (20:19)
[2023-05-10 21:58] LABS: BASOPHILS % (AUTO) 0.4 % (0-1); EOSINOPHILS # (AUTO) 0.1 X10'3 (0-0.9); EOSINOPHILS % (AUTO) 1.2 % (0-6); HEMATOCRIT 27.7 % (35.0-45.0); HEMOGLOBIN 9.7 g/dl (12.0-16.0); LYMPHOCYTES # (AUTO) 1.7 X10'3 (1.1-4.8); LYMPHOCYTES % (AUTO) 16.1 % (21-51); MEAN CORPUSCULAR HEMOGLOBIN 33.6 PG (27.0-31.0); MEAN CORPUSCULAR HGB CONC 35.2 g/dL (33.0-36.5); MEAN CORPUSCULAR VOLUME 95.5 FL (78-98); MEAN PLATELET VOLUME 8.7 FL (7.4-10.4); NEUTROPHILS # (AUTO) 7.4 X10'3 (1.8-7.7); NEUTROPHILS % (AUTO) 72.3 % (42-75); PLATELET COUNT 176 X10'3 (140-440); RED CELL DISTRIBUTION WIDTH 13.1 % (11.5-14.5); WHITE BLOOD COUNT 10.3 X10'3 (4.5-11.0)
[2023-05-10 22:09] LABS: ALANINE AMINOTRANSFERASE 20 U/L (12-78); ALBUMIN 2.1 G/DL (3.4-5.0); ALBUMIN/GLOBULIN RATIO 0.7 (1.1-1.5); ALKALINE PHOSPHATASE 63 IU/L (46-116); ANION GAP 5 (8-16); ASPARTATE AMINO TRANSFERASE 23 U/L (10-37); BILIRUBIN,TOTAL 0.7 MG/DL (0.1-1.0); BLOOD UREA NITROGEN 10 MG/DL (7-18); CALCIUM 8.2 MG/DL (8.5-10.1); CHLORIDE 99 MMOL/L (99-107); CREATININE 0.77 MG/DL (0.40-0.90); GLUCOSE 219 MG/DL (70-104); POTASSIUM 3.7 MMOL/L (3.5-5.1); SODIUM 131 MMOL/L (135-145); eCRCL 59 ML/MIN; eGFR 73 ML/MIN
[2023-05-11] MEDS: normal saline 1000ml 1,000 ML IV SCH ×4 (01:45→21:06)
[2023-05-11] MEDS: HYDROcodone/acetaminophen 5mg/325mg tablet PO PRN ×4 (04:21→12:35)
[2023-05-11 08:00] VITALS: BP_SYST 103; BP_SYST 105; BP_SYST 113; BP_DIAS 49; BP_DIAS 50; PULSE 71; PULSE 76; RESP 15; O2SAT 98
[2023-05-11] MEDS: docusate sod 100mg capsule PO SCH ×2 (08:00→21:01)
[2023-05-11] MEDS: K and/or MAG REPLACEMENT MC SCH ×2 (08:00→20:00)
[2023-05-11 08:11] VITALS: PULSE 70; RESP 16; O2SAT 97
[2023-05-11] MEDS: multivitamins, therapeutics tablet PO SCH (08:59)
[2023-05-11] MEDS: carvedilol 6.25mg tablet PO SCH ×2 (08:59→21:02)
[2023-05-11] MEDS: metFORMIN 500mg tablet PO SCH ×2 (08:59→17:15)
[2023-05-11] MEDS: apixaban 5mg tablet PO SCH ×2 (09:00→21:03)
[2023-05-11] MEDS: flecainide 50mg tablet PO SCH ×2 (09:00→21:02)
[2023-05-11] MEDS: levoFLOXACIN 500mg tablet PO SCH (12:31)
[2023-05-11 14:29] LABS: BASOPHILS # (AUTO) 0.1 X10'3 (0-0.2); BASOPHILS % (AUTO) 0.9 % (0-1); EOSINOPHILS # (AUTO) 0.2 X10'3 (0-0.9); EOSINOPHILS % (AUTO) 2.3 % (0-6); HEMOGLOBIN 9.3 g/dl (12.0-16.0); LYMPHOCYTES # (AUTO) 1.4 X10'3 (1.1-4.8); LYMPHOCYTES % (AUTO) 15.8 % (21-51); MEAN CORPUSCULAR HEMOGLOBIN 33.4 PG (27.0-31.0); MEAN CORPUSCULAR HGB CONC 34.6 g/dL (33.0-36.5); MEAN CORPUSCULAR VOLUME 96.5 FL (78-98); MEAN PLATELET VOLUME 8.6 FL (7.4-10.4); MONOCYTES # (AUTO) 0.8 X10'3 (0-0.9); NEUTROPHILS # (AUTO) 6.4 X10'3 (1.8-7.7); PLATELET COUNT 187 X10'3 (140-440); RED CELL DISTRIBUTION WIDTH 13.2 % (11.5-14.5); WHITE BLOOD COUNT 8.8 X10'3 (4.5-11.0)
[2023-05-11 14:49] LABS: ALBUMIN 2.1 G/DL (3.4-5.0); ANION GAP 4 (8-16); BLOOD UREA NITROGEN 9 MG/DL (7-18); BUN/CREATININE RATIO 13.8 (10.0-20.0); CALCIUM 8.3 MG/DL (8.5-10.1); CHLORIDE 100 MMOL/L (99-107); CREATININE 0.65 MG/DL (0.40-0.90); GLUCOSE 215 MG/DL (70-104); POTASSIUM 3.9 MMOL/L (3.5-5.1); SODIUM 131 MMOL/L (135-145); TOTAL CARBON DIOXIDE 27.5 MMOL/L (24-32); eCRCL 69 ML/MIN; eGFR 88 ML/MIN
[2023-05-11] MEDS: HYDROcodone/acetaminophen 10/325mg tab PO PRN ×2 (17:15→21:03)
[2023-05-11 18:00] VITALS: BP 131/75; PULSE 83; RESP 18; TEMP 97.3; O2SAT 96
[2023-05-11] MEDS: lactose-reduced food (Ensure Enlive) - 237ml bottle PO SCH (18:00)
--- NOTE | 2023-05-11 18:48 | NUR ---
I have reviewed and agree with all interventions, assessments performed and documented by Rasheeda.
[2023-05-11] MEDS: Melatonin 3mg tablet PO SCH (21:02)
[2023-05-11 22:00] VITALS: BP 132/70; PULSE 71; RESP 16; TEMP 98.2; O2SAT 96
[2023-05-12] MEDS: HYDROcodone/acetaminophen 10/325mg tab PO PRN ×3 (01:19→10:17)
--- NOTE | 2023-05-12 06:23 | NUR ---
Problems reprioritized. Patient report given, questions answered & plan of care reviewed with Cheri MÉNDEZ.
[2023-05-12 06:40] VITALS: BP 132/59; PULSE 76; RESP 15; TEMP 98.2; O2SAT 96
--- NOTE | 2023-05-12 06:43 | NUR ---
Patient in room ORTHO 4020. I have received report from Gretchen and had the opportunity to ask questions and assume patient care.
[2023-05-12 08:00] VITALS: BP 139/70; PULSE 85; RESP 17; O2SAT 98
[2023-05-12] MEDS: K and/or MAG REPLACEMENT MC SCH (08:00)
[2023-05-12] MEDS: ROSUVASTATIN CALCIUM 5 MG TABLET PO SCH (08:08)
[2023-05-12] MEDS: metFORMIN 500mg tablet PO SCH (08:09)
[2023-05-12] MEDS: docusate sod 100mg capsule PO SCH (08:09)
[2023-05-12] MEDS: carvedilol 6.25mg tablet PO SCH (08:09)
[2023-05-12] MEDS: multivitamins, therapeutics tablet PO SCH (08:09)
[2023-05-12] MEDS: apixaban 5mg tablet PO SCH (08:09)
[2023-05-12] MEDS: flecainide 50mg tablet PO SCH (08:10)
[2023-05-12] MEDS: lactose-reduced food (Ensure Enlive) - 237ml bottle PO SCH (08:13)
[2023-05-12 10:00] VITALS: BP 132/59; PULSE 76; RESP 15; TEMP 98.2; O2SAT 96
[2023-05-12] MEDS: levoFLOXACIN 500mg tablet PO SCH (10:17)
[2023-05-12 10:39] VITALS: PULSE 79; RESP 16; O2SAT 96
[2023-05-12 11:17] VITALS: RESP 16
--- NOTE | 2023-05-12 11:48 | NUR ---
Reassessment: No significant changes in PO intake as pt continues with average 41% PO intake of meals only meeting 48% estimated energy needs and 41% estimated protein needs. Physician has signed off on ONS, pt to begin receiving an Ensure Enlive TID. LBM 05/12 per I&O. Will continue to follow closely and monitor need for further nutrition intervention pending documentation of ONS acceptance. Recommendations: 1. Liberalize to regular diet. Heart healthy diet not warranted d/t episodes of hypotension and hyponatremia. Carbohydrate controlled diet not warranted given A1c of 6.7% appropriate given age. 2. Ensure Enlive TIDWM 3. Routine bowel care 4. Weekly scaled wt Addendum: 05/12/23 at [address] Amended: Links added.
--- NOTE | 2023-05-12 14:00 | NUR ---
Pt transferred to [facility], report called and given. Pt left with all belongings and in stable condition.
== END 2023-05-12 13:30 | DRG 522 ==
LOC: ER 18:20 → ED HOLD 19:55 → ORTHO 4S 05-05 07:35
PROVIDERS: ADMIT Internal Medicine; ATTEND Family Medicine
PROC: 3E0T3BZ Introduction of Anesthetic Agent into Peripheral Nerves and Plexi, Percutaneous Approach (ICD-10-PCS; 2023-05-06)
PROC: 0SRB0JA Replacement of Left Hip Joint with Synthetic Substitute, Uncemented, Open Approach (ICD-10-PCS; principal; 2023-05-06 07:37)
PROC: 30233N1 Transfusion of Nonautologous Red Blood Cells into Peripheral Vein, Percutaneous Approach (ICD-10-PCS; 2023-05-09)
DX: S72.002A Fracture of unspecified part of neck of left femur, initial encounter for closed fracture (principal); N39.0 Urinary tract infection, site not specified; E87.1 Hypo-osmolality and hyponatremia; I48.11 Longstanding persistent atrial fibrillation; D62 Acute posthemorrhagic anemia; E11.9 Type 2 diabetes mellitus without complications; G25.0 Essential tremor; D69.6 Thrombocytopenia, unspecified; B96.20 Unspecified Escherichia coli [E. coli] as the cause of diseases classified elsewhere; W18.39XA Other fall on same level, initial encounter; Z79.01 Long term (current) use of anticoagulants; Z79.84 Long term (current) use of oral hypoglycemic drugs; Z79.899 Other long term (current) drug therapy; Y93.89 Activity, other specified; Y92.89 Other specified places as the place of occurrence of the external cause; Y99.8 Other external cause status
CPT/HCPCS: 36415; 36430; 71045; 73502; 80048; 80053; 81001; 82272; 82948; 83036; 83735; 85025; 85027; 85384; 85610; 86885; 86900; 86901; 86920; 87077; 87081; 87088; 87186; 93005; 94760; 97110; 97116; 97162; 97530; 99285; A4314; A4615; A4618; A6250; A6454; A7000; C1776; G0378; J0131; J0690; J0735; J1100; J1815; J1885; J2250; J2270; J2405; J2704; J2795; J3010; J3370; J3490; J7030; J7040; J7120; P9016; Q0163

== ENCOUNTER 2023-07-26 14:46 | Emergency (ER) | payer MEDICARE, OTHER ==
[~2023-07-26] VITALS: Ht 170.2 cm; Wt 69.5 kg
[~2023-07-26 14:46] MED LIST changes: +PRIM50TA27 PO; +PRIM50TA5 PO; -VERA240T PO
[2023-07-26 15:03] VITALS: TEMP 98
[2023-07-26 15:40] LABS: BASOPHILS % (AUTO) 0.5 % (0-1); EOSINOPHILS # (AUTO) 0.1 X10'3 (0-0.9); EOSINOPHILS % (AUTO) 1.6 % (0-6); HEMATOCRIT 39.9 % (35.0-45.0); HEMOGLOBIN 13.4 g/dl (12.0-16.0); LYMPHOCYTES # (AUTO) 2.3 X10'3 (1.1-4.8); LYMPHOCYTES % (AUTO) 36.2 % (21-51); MEAN CORPUSCULAR HEMOGLOBIN 32.9 PG (27.0-31.0); MEAN CORPUSCULAR HGB CONC 33.5 g/dL (33.0-36.5); MEAN CORPUSCULAR VOLUME 98.4 FL (78-98); MEAN PLATELET VOLUME 9.4 FL (7.4-10.4); MONOCYTES # (AUTO) 0.4 X10'3 (0-0.9); NEUTROPHILS # (AUTO) 3.4 X10'3 (1.8-7.7); NEUTROPHILS % (AUTO) 54.7 % (42-75); PLATELET COUNT 189 X10'3 (140-440); RED BLOOD COUNT 4.06 X10'6 (4.20-5.60); RED CELL DISTRIBUTION WIDTH 13.2 % (11.5-14.5); WHITE BLOOD COUNT 6.2 X10'3 (4.5-11.0)
[2023-07-26] MEDS ORDERED: diltiazem 5mg/ml 5ml inj. IV ONE (15:45)
[2023-07-26 15:49] LABS: ALANINE AMINOTRANSFERASE 16 U/L (12-78); ALBUMIN 3.9 G/DL (3.4-5.0); ALBUMIN/GLOBULIN RATIO 1.3 (1.1-1.5); ALKALINE PHOSPHATASE 82 IU/L (46-116); ANION GAP 10 (8-16); ASPARTATE AMINO TRANSFERASE 10 U/L (10-37); BILIRUBIN,TOTAL 0.2 MG/DL (0.1-1.0); BLOOD UREA NITROGEN 15 MG/DL (7-18); BUN/CREATININE RATIO 15.8 (10.0-20.0); CALCIUM 9.1 MG/DL (8.5-10.1); CHLORIDE 99 MMOL/L (99-107); CREATININE 0.95 MG/DL (0.40-0.90); GLUCOSE 141 MG/DL (70-104); POTASSIUM 4.1 MMOL/L (3.5-5.1); SODIUM 134 MMOL/L (135-145); TOTAL CARBON DIOXIDE 25.2 MMOL/L (24-32); TOTAL PROTEIN 6.9 G/DL (6.4-8.2); eCRCL 47 ML/MIN; eGFR 57 ML/MIN
[2023-07-26 15:55] LABS: PRO BRAIN NATRIURETIC PEPTIDE 2217 PG/ML (0-450)
[2023-07-26] MEDS ORDERED: normal saline 500ml IV soln 500 ML IV ONE (16:00)
[2023-07-26] MEDS ORDERED: metoprolol tartrate 1mg/ml inj IV ONE (19:05)
[2023-07-26 20:27] LABS: PRO BRAIN NATRIURETIC PEPTIDE 2110 PG/ML (0-450)
[2023-07-26 21:30] VITALS: BP 106/66; PULSE 91; RESP 17; O2SAT 97
== END 2023-07-26 22:21 | disposition home or self-care (01) ==
LOC: ER 14:47
DX: I48.20 Chronic atrial fibrillation, unspecified (principal); I50.9 Heart failure, unspecified; E78.00 Pure hypercholesterolemia, unspecified; E11.9 Type 2 diabetes mellitus without complications; Z87.81 Personal history of (healed) traumatic fracture; Z90.710 Acquired absence of both cervix and uterus; Z79.899 Other long term (current) drug therapy
CPT/HCPCS: 36415; 71045; 80053; 83880; 84484; 85025; 93005; 96374; 96375; 99285; J3490; J7040

== ENCOUNTER 2023-09-01 09:23 | Day surgery (SDC) | payer MEDICARE, OTHER ==
[~2023-09-01] VITALS: Ht 170.2 cm; Wt 71.4 kg
[2023-09-01] VITALS (14 sets, daily range): BP systolic 96–122; BP diastolic 57–87; PULSE 56–111; RESP 11–15; TEMP 98; O2SAT 94–97
[2023-09-01] MEDS ORDERED: normal saline 1000ml 1,000 ML IV PRN (10:00)
[2023-09-01] MEDS ORDERED: DILT60TA3 PO (10:12)
[2023-09-01] MEDS ORDERED: DILT30TA2 PO (10:14)
[2023-09-01] MEDS ORDERED: DOCU-22 PO (10:14)
[2023-09-01 10:33] LABS: BASOPHILS % (AUTO) 0.4 % (0-1); EOSINOPHILS # (AUTO) 0.1 X10'3 (0-0.9); EOSINOPHILS % (AUTO) 1.1 % (0-6); HEMATOCRIT 37.9 % (35.0-45.0); HEMOGLOBIN 12.8 g/dl (12.0-16.0); LYMPHOCYTES # (AUTO) 1.6 X10'3 (1.1-4.8); LYMPHOCYTES % (AUTO) 24.1 % (21-51); MEAN CORPUSCULAR HEMOGLOBIN 33.2 PG (27.0-31.0); MEAN CORPUSCULAR HGB CONC 33.9 g/dL (33.0-36.5); MEAN CORPUSCULAR VOLUME 97.8 FL (78-98); MEAN PLATELET VOLUME 9.3 FL (7.4-10.4); MONOCYTES # (AUTO) 0.4 X10'3 (0-0.9); MONOCYTES % (AUTO) 6.2 % (2-12); NEUTROPHILS # (AUTO) 4.5 X10'3 (1.8-7.7); NEUTROPHILS % (AUTO) 68.2 % (42-75); PLATELET COUNT 178 X10'3 (140-440); RED BLOOD COUNT 3.87 X10'6 (4.20-5.60); RED CELL DISTRIBUTION WIDTH 13.1 % (11.5-14.5); WHITE BLOOD COUNT 6.7 X10'3 (4.5-11.0)
[2023-09-01 10:36] LABS: INR 1.1 INR; PROTHROMBIN TIME 11.7 SECONDS (9.0-12.0)
[2023-09-01 11:00] LABS: ALBUMIN 3.8 G/DL (3.4-5.0); ANION GAP 11 (8-16); BLOOD UREA NITROGEN 13 MG/DL (7-18); BUN/CREATININE RATIO 19.4 (10.0-20.0); CALCIUM 8.8 MG/DL (8.5-10.1); CHLORIDE 104 MMOL/L (99-107); CREATININE 0.67 MG/DL (0.40-0.90); GLUCOSE 144 MG/DL (70-104); MAGNESIUM 1.7 MG/DL (1.5-2.4); POTASSIUM 4.1 MMOL/L (3.5-5.1); SODIUM 139 MMOL/L (135-145); TOTAL CARBON DIOXIDE 24.4 MMOL/L (24-32); eCRCL 66 ML/MIN; eGFR 85 ML/MIN
[2023-09-01] MEDS ORDERED: normal saline 1000ml 1,000 ML IV SCH (11:10)
[2023-09-01] MEDS: MIDAZolam 1mg/ml 10ml vial IV ONE (11:30)
[2023-09-01] MEDS: fentaNYL/PF 50MCG/1 ML 2ML syringe IV ONE (11:30)
== END 2023-09-01 12:50 | disposition home or self-care (01) ==
LOC: SSTAY O 09:23
PROVIDERS: ATTEND Internal Medicine Cardiovascular Disease
DX: I48.0 Paroxysmal atrial fibrillation (principal); E11.9 Type 2 diabetes mellitus without complications; E78.5 Hyperlipidemia, unspecified; I34.0 Nonrheumatic mitral (valve) insufficiency; I34.1 Nonrheumatic mitral (valve) prolapse; Z79.01 Long term (current) use of anticoagulants; Z79.84 Long term (current) use of oral hypoglycemic drugs; Z79.899 Other long term (current) drug therapy
CPT/HCPCS: 36415; 80048; 83735; 85025; 85610; 92960; 93005; J2250; J3010; J7030; A4620; A6258; A6402; A6449